=== PATIENT | male | born 1990 | race Caucasian/White ===

== ENCOUNTER 2016-09-23 14:12 | Emergency (ER) | payer OTHER ==
[2016-09-23 14:31] VITALS: BP 127/77; PULSE 110; TEMP 99.8; BMI 23.6
[2016-09-23] MEDS ORDERED: IBUPROFEN 600 MG TABLET (FP) PO ONE (15:14)
[2016-09-23] MEDS ORDERED: IBUPROFEN 400 MG TABLET (FP) PO ONE (15:16)
--- NOTE | 2016-09-23 15:25 | PDOC ---
History of Present Illness - General Chief Complaint: Cold Symptoms Stated Complaint: FEVER, COUGH Time Seen by Provider: 09/23/16 14:52 History Source: Patient Exam Limitations: No Limitations - History of Present Illness Initial Comments: 09/23/16 15:20 25 yr male no medical history with sudden onset body aches, chills cough and nasal congestion for 3 days. Girlfriend and son with same symptoms started 2 days ago. Pt is a non smoker no medical history or allergies. no meds taken [employer]. No SOB or chest pain . 09/23/16 15:23 Timing/Duration: reports: getting worse Severity: reports: mild Associated Symptoms: reports: chest pain/soreness, cough, fever/chills, nasal congestion Past History - Past Medical History Allergies/Adverse Reactions: Allergies Allergy/AdvReac Type Severity Reaction Status Date / Time Penicillins Allergy Rash Verified 09/23/16 14:32 Home Medications: Ambulatory Orders Ibuprofen 800 mg PO TID PRN #20 tablet 09/23/16 Oseltamivir Phosphate [Tamiflu] 75 mg PO BID #10 capsule 09/23/16 Other medical history: NONE - Family Disease History Comment:: 09/23/16 15:24 none relevant - Psycho/Social/Smoking Cessation Hx Suicidal Ideation: No Smoking History: Never smoked Hx Alcohol Use: Yes (SOCIAL) Drug/Substance Use Hx: No Substance Use Type: None Respiratory Specific PMHX - Complaint Specific PMHX Angina: No Bronchitis: No Pneumonia: No Pulmonary Embolus: No TB (Tuberculosis): No Review of Systems - Review of Systems Able to Perform ROS?: Yes Is the patient limited Wallisian proficient: No Constitutional: Yes: Symptoms Reported, See HPI, Fever HEENTM: Yes: Nose Congestion Respiratory: Yes: Cough *Physical Exam - Vital Signs Last Vital Signs Temp Pulse Resp BP Pulse Ox 99.8 F H 110 H 20 127/77 96 09/23/16 14:29 09/23/16 14:29 09/23/16 14:29 09/23/16 14:29 09/23/16 14:29 - Physical Exam General Appearance: Yes: Nourished, Appropriately Dressed HEENT: positive: EOMI, JONNY, Normal ENT Inspection, TMs Normal, Pharynx Normal, Nasal Congestion Neck: positive: Supple. negative: Tender Respiratory/Chest: positive: Lungs Clear, Normal Breath Sounds. negative: Chest Tender, Rales, Rhonchi, Stridor, Wheezing Cardiovascular: positive: Regular Rhythm, Regular Rate Gastrointestinal/Abdominal: positive: Normal Bowel Sounds, Soft Musculoskeletal: positive: Normal Inspection Extremity: positive: Normal Capillary Refill, Normal Inspection, Normal Range of Motion Integumentary: positive: Normal Color, Dry, Warm Neurologic: positive: Fully Oriented, Alert, Normal Mood/Affect, Normal Response , Motor Strength 5 Medical Decision Making - Medical Decision Making 09/23/16 15:25 cc: flu like symptoms cough, fever, chills body aches will give motrin 800mg 09/23/16 18:57 young son is positive for Influenza A will treat for flu *DC/Admit/Observation/Transfer Diagnosis at time of Disposition: Flu - Discharge Dispostion Disposition: HOME Condition at time of disposition: Good - Prescriptions Prescriptions: Ibuprofen 800 mg PO TID PRN #20 tablet PRN Reason: Fever Or Pain Oseltamivir Phosphate [Tamiflu] 75 mg PO BID #10 capsule - Referrals Referrals: [facility] [Provider Group] - Patient Instructions Additional Instructions: rest at home avoid crowds, stores until you are feeling better wash hands frequently drink pleanty of fluids to stay hydrated at least 1-2 liters a day of water take ibuprofen as prescribed for fever or pain take tamiflu as directed for 5 days to help shorten the course of illness, Tamiflu will not make your symptoms go away so take any over the counter supplements that will help your symptoms follow at the clinic in 3-5 days if not improving Return to ER for any worsening symptoms - Post Discharge Activity Work/School Note: Back to Work
== END 2016-09-23 16:01 | disposition home or self-care (01) ==
LOC: JERFT 14:12
DX: J11.1 Influenza due to unidentified influenza virus with other respiratory manifestations (principal)
CPT/HCPCS: 99281-25